=== PATIENT | female | born 1995 | race African-American/Black ===

== ENCOUNTER 2017-04-25 05:07 | Emergency (ER) | payer SELFPAY ==
[~2017-04-25] VITALS: Ht 167.6 cm; Wt 57.1 kg
[~2017-04-25 05:07] MED LIST: [UNRECOGNIZED DRUG - REMARK]
[2017-04-25 05:16] VITALS: BP 109/62; PULSE 101; RESP 17; TEMP 98.2; O2SAT 98
--- NOTE | 2017-04-25 05:22 | PD ---
Physical Exam Date Seen by Provider: Apr 25, 2017 Time Seen by Provider: 05:20 Narrative Patient is a 21-year-old female transferred from [facility] emergency department under a Mayberry act for psychiatric evaluation. For full history and physical examination please see previous providers note. Data Data Last Documented VS Vital Signs Date Time Temp Pulse Resp B/P (MAP) Pulse Ox O2 Delivery O2 Flow Rate FiO2 04/25/17 05:16 98.2 101 17 109/62 (78) 98 Room Air Orders Orders Psych Screen (04/25/17 05:18) Diet Regular Basic (04/25/17 Breakfast) Ibuprofen (Motrin) (04/25/17 05:30) MDM Medical Record Reviewed: Yes Supervised Visit with BHANU: No Interpretation(s) Vital Signs Date Time Temp Pulse Resp B/P (MAP) Pulse Ox O2 Delivery O2 Flow Rate FiO2 04/25/17 05:16 98.2 101 17 109/62 (78) 98 Room Air Narrative Course Patient was seen and evaluated and [id number]. She complained of a headache, ibuprofen is ordered. Labs reviewed, urine drug screen is positive for cocaine and marijuana patient is medically cleared for psychiatric evaluation at this time. Diagnosis Primary Impression: Medical clearance for psychiatric admission Condition: Stable Silvia Christianson Apr 25, 2017 05:22
[2017-04-25] MEDS ORDERED: IBUPROFEN 800 MG TAB PO ONE (05:30)
[2017-04-25 06:44] VITALS: BP 116/56; PULSE 92; RESP 16; O2SAT 99
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
[2017-04-25 18:15] VITALS: BP 110/59; PULSE 96; RESP 18; O2SAT 98
[2017-04-25 22:06] VITALS: BP 106/60; PULSE 97; RESP 17; TEMP 98.8; O2SAT 98
[2017-04-26 03:35] VITALS: BP 96/62; PULSE 97; TEMP 99.4; O2SAT 98
[2017-04-26 10:01] VITALS: BP 98/58; PULSE 104; RESP 18; TEMP 98.8; O2SAT 95
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
--- NOTE | 2017-04-26 10:33 | PD ---
Physical Exam Time Seen by Provider: 10:32 Narrative COMPA Kirkland has evaluated the patient, lifted the Mayberry act and cleared the patient for discharge. Data Data Last Documented VS Vital Signs Date Time Temp Pulse Resp B/P (MAP) Pulse Ox O2 Delivery O2 Flow Rate FiO2 04/26/17 10:01 98.8 104 18 98/58 (71) 95 Room Air Orders Orders Psych Screen (04/25/17 05:18) Diet Regular Basic (04/25/17 Breakfast) Ibuprofen (Motrin) (04/25/17 05:30) Diet Regular Basic (04/25/17 Lunch) Diet Regular Basic (04/25/17 Dinner) Diet Regular Basic (04/26/17 Breakfast) MDM Supervised Visit with BHANU: No Narrative Course COMPA Kirkland has evaluated the patient, lifted the Mayberry act and cleared the patient for discharge. Patient contracts safety. Denies suicidal or homicidal ideations. Patient will be provided community resource packet to [facility] for follow-up. Has friends and family for support. Patient was medically cleared by alternate provider prior to psych screening. Patient has been evaluated by psychiatry and and is now cleared for discharge. Diagnosis Primary Impression: Substance abuse Additional Impression: Unspecified psychosis Referrals: BERENICE (Out patient) [facility] Primary Care Physician Psychiatrist [facility] Patient Instructions: Polysubstance Abuse (ED) Additional Instruction: Contract safety to your self and others Stop using drugs Follow-up with psychiatry Follow-up with primary care provider Follow-up with Freddie Ramos Return to the emergency department immediately with worsening of symptoms Med/Other Pt SpecificInfo: No Change to Meds, No Meds Exist/No RX given Scripts No Active Prescriptions or Reported Meds Disposition: 01 DISCHARGE HOME Condition: Stable Joan Slater Apr 26, 2017 10:33
[2017-04-26 10:40] VITALS: PULSE 88; RESP 16
== END 2017-04-26 11:15 | disposition home or self-care (01) ==
LOC: NEPJ 05:07
DX: F19.10 Other psychoactive substance abuse, uncomplicated (principal); F20.9 Schizophrenia, unspecified; F31.9 Bipolar disorder, unspecified; J45.909 Unspecified asthma, uncomplicated; F17.200 Nicotine dependence, unspecified, uncomplicated; Z59.0 Homelessness
CPT/HCPCS: 80053; 80307; 84702; 85025; 99283; 99284